=== PATIENT | female | born 2000 | race Caucasian/White ===

== ENCOUNTER 2022-12-18 11:50 | Emergency (ER) | payer MEDICAID, OTHER ==
[~2022-12-18] VITALS: Ht 160 cm; Wt 67.2 kg
[2022-12-18 12:15] VITALS: BP 123/77
[2022-12-18 13:36] LABS: CLARITY,URINE SLIGHTLY CLOUDY (Clear); COLOR,URINE YELLOW (Yellow); GLUCOSE, URINE NEGATIVE (Neg); KETONES,URINE TRACE mg/dl (Neg); LEUKOCYTE ESTERASE ,URINE SMALL (Neg); NITRITES, URINE POSITIVE (Neg); OCCULT BLOOD,URINE MODERATE (Neg); PROTEIN,URINE 100 mg/dl (Neg)
[2022-12-18 13:40] LABS: UA COLLECTION TYPE CLN CATCH MIDSTREAM
[2022-12-18 13:42] LABS: BACTERIA,URINE 4+ /HPF (Neg); RBC,URINE 0-2 /HPF (0-2); WBC,URINE 50-100 /HPF (0-4)
[2022-12-18 13:43] LABS: MUCUS STRANDS FEW /LPF (Neg); SQUAMOUS EPITHELIAL CELL,UR MODERATE /LPF (FEW)
[2022-12-18] MEDS ORDERED: CEPH250T PO (14:46)
[2022-12-18] MEDS ORDERED: cephalexin 500mg capsule PO ONE (14:50)
[2022-12-18] MEDS ORDERED: cephalexin 250mg capsule PO ONE (14:50)
== END 2022-12-18 15:00 | disposition home or self-care (01) ==
LOC: ER 11:50
DX: T19.2XXA Foreign body in vulva and vagina, initial encounter (principal); N39.0 Urinary tract infection, site not specified
CPT/HCPCS: 81001; 87077; 87088; 87186; 99283; 99284